=== PATIENT | male | born 1985 | race American Indian/Alaskan Native ===

== ENCOUNTER 2017-04-07 13:17 | Emergency (ER) | payer SELFPAY ==
[2017-04-07 13:31] VITALS: O2SAT 96
[2017-04-07] MEDS ORDERED: Iohexol 240 (50 ml) PO STA (13:57)
[2017-04-07] MEDS ORDERED: Iohexol 240 (50 ml) ONE (14:09)
[2017-04-07 14:11] LABS: BASO % 0.9 % (0.0-2.0); EOS # 0.1 K/uL (0.0-0.7); EOS % 2.8 % (0.0-4.0); HEMATOCRIT 42.3 % (35.0-51.0); LYMPH # 1.9 K/uL (1.0-4.3); LYMPH % 40.1 % (20.0-40.0); MEAN CELL VOLUME 85.8 fL (80.0-94.0); MEAN CORPUSCULAR HEMOGLOBIN 27.9 pg (27.0-31.0); MEAN CORPUSCULAR HGB CONC 32.5 g/dL (33.0-37.0); MEAN PLATELET VOLUME 7.3 fL (7.2-11.7); MONO # 0.4 K/uL (0.0-0.8); MONO % 9.6 % (0.0-10.0); NRBC % 0.1 % (0.0-2.0); RED CELL DISTRIBUTION WIDTH 13.1 % (11.5-14.5); WHITE BLOOD COUNT 4.7 K/uL (4.8-10.8)
[2017-04-07 14:25] LABS: ALB/GLOB RATIO 0.9 (1.0-2.1); ALKALINE PHOSPHATASE 98 U/L (38-126); ALT/SGPT 71 U/L (21-72); AST/SGOT 124 U/L (17-59); BILIRUBIN,TOTAL 0.6 mg/dL (0.2-1.3); BLOOD UREA NITROGEN 9 mg/dL (9-20); CALCIUM 8.3 mg/dl (8.6-10.4); CARBON DIOXIDE 32 mmol/L (22-30); CHLORIDE 104 mmol/L (98-107); GFR AFRICAN-AMERICAN > 60; GLUCOSE,RANDOM 96 mg/dL (75-110); POTASSIUM 3.7 mmol/L (3.6-5.2); SODIUM 140 mmol/L (132-148); TOTAL PROTEIN 7.7 g/dL (6.3-8.3)
--- NOTE | 2017-04-07 14:45 | C.PDOC ---
History Of Present Illness Dusty Valdez is a 31 year old male, with no past medical history, who presents to the emergency department complaining of a sharp cramp abdominal pain associated with vomit and diarrhea onset for x5 days. Patient reports improvement of vomiting today and stats he had a bloody mucus bowel movement. The pain is localized in periumbilical and LLQ . Positive tactile fever. He denies any recent travels. No further medical complaints. PMD: Iggy Belcher Time Seen by Provider: 04/07/17 13:43 Chief Complaint (Nursing): Abdominal Pain History Per: Patient History/Exam Limitations: no limitations Onset/Duration Of Symptoms: Days (x5) Current Symptoms Are (Timing): Still Present Pain Scale Rating Of: 6 Location Of Pain/Discomfort: LLQ, Periumbilical Radiation Of Pain To:: None Quality Of Discomfort: Sharp, Cramping Associated Symptoms: Fever, Vomiting, Diarrhea Recent travel outside of the [place]: No Past Medical History Reviewed: Historical Data, Nursing Documentation, Vital Signs Vital Signs: Last Vital Signs Temp 98.2 F 04/07/17 13:20 Pulse 81 04/07/17 13:20 Resp 18 04/07/17 13:20 BP 103/70 04/07/17 13:20 Pulse Ox 96 04/07/17 16:27 - Medical History PMH: Anxiety, Depression Surgical History: No Surg Hx Family History: States: Unknown Family Hx - Social History Hx Tobacco Use: No Hx Alcohol Use: No Hx Substance Use: Yes (marijuana) - Immunization History Hx Tetanus Toxoid Vaccination: No Hx Influenza Vaccination: No Hx Pneumococcal Vaccination: No Review Of Systems Except As Marked, All Systems Reviewed And Found Negative. Constitutional: Positive for: Fever Gastrointestinal: Positive for: Vomiting, Abdominal Pain, Diarrhea Physical Exam - Physical Exam Skin: Normal Color, Warm, Dry Head: Atraumatic, Normacephalic Eye(s): bilateral: Normal Inspection, PERRL, EOMI Ear(s): Bilateral: Normal Throat: Normal Neck: Normal ROM, Supple Cardiovascular: Rhythm Regular Respiratory: Normal Breath Sounds, No Accessory Muscle Use Gastrointestinal/Abdominal: Tenderness (LLQ) Extremity: Normal ROM, No Deformity, No Swelling Neurological/Psych: Oriented x3, Normal Speech ED Course And Treatment - Laboratory Results Result Diagrams: 04/07/17 14:07 12/12/17 14:07 O2 Sat by Pulse Oximetry: 96 (RA) Pulse Ox Interpretation: Normal Medical Decision Making Medical Decision Making: Initial Impression: Abdominal Pain Initial Plan: --Abd pelvis PO & IV contrast --Comp Metabolic Panel --Lipase --CBC w/ differential --Morphine 2 mg IVP --Omnipaque 240 50 ml PO --Pepcid 20 mg IVP --Zofran Inj 4 mg IVP --C Diff toxin A B --Urinalysis 15:55 Abd/Pelvis CT FINDINGS: LOWER THORAX: No visible consolidation, pleural effusion, or pneumothorax. LIVER: Unremarkable. GALLBLADDER AND BILE DUCTS: Unremarkable. PANCREAS: Unremarkable. SPLEEN: Unremarkable. ADRENALS: Unremarkable. KIDNEYS AND URETERS: The kidneys enhance symmetrically. No hydronephrosis or obstructing renal calculus. BLADDER: The urinary bladder appears unremarkable. REPRODUCTIVE: Unremarkable. APPENDIX: The appendix appears within normal limits of caliber. No secondary signs of acute appendicitis. BOWEL: The stomach is nondistended. The bowel loops appear within normal limits of caliber without evidence of intestinal obstruction. PERITONEUM: No significant free fluid. No definite free air. LYMPH NODES: No bulky lymphadenopathy identified. VASCULATURE: No aortic aneurysm. BONES: No acute osseous abnormality is detected. OTHER FINDINGS: None. IMPRESSION: No acute findings identified. 16:27 -Patient feels better, no further pain. Discussed CT scan and blood results with patient, advised for follow-up with PMD in x2 days. Given mucus will start patient in Cipro and Flagyl for home. Disposition - Disposition Referrals: Iggy Belcher MD [Staff Provider] - Disposition: HOME/ ROUTINE Disposition Time: 16:23 Condition: IMPROVED Additional Instructions: follow up with your doctor in 2 days call to make an appointment take medications as prescribed return to hospital if symptoms worsens or progress Prescriptions: Acetaminophen/Codeine [Tylenol/Codeine 300 MG/30 MG] 1 tab PO Q6H PRN #8 tab PRN Reason: Pain, Severe (8-10) Ciprofloxacin HCl [Cipro] 500 mg PO BID #20 tab Metronidazole [Flagyl] 500 mg PO BID #20 tablet Ondansetron ODT [Zofran ODT] 4 mg PO TID PRN #12 odt PRN Reason: Nausea/Vomiting Forms: General Discharge Instructions, [facility] (Belgian) - Clinical Impression Clinical Impression: Abdominal pain - Scribe Statement Spike Camacho Provider Attestation: All medical record entries made by the Scribe were at my direction and personally dictated by me. I have reviewed the chart and agree that the record accurately reflects my personal performance of the history, physical exam, medical decision making, and the department course for this patient. I have also personally directed, reviewed, and agree with the discharge instructions and disposition.
[2017-04-07 15:00] LABS: RBC URINE 4 /hpf (0-3); URINE BACTERIA OCC (<OCC); URINE BILIRUBIN NEGATIVE (NEGATIVE); URINE BLOOD NEGATIVE (NEGATIVE); URINE COLOR Yellow (YELLOW); URINE GLUCOSE (UA) NORMAL (Normal); URINE KETONE NEGATIVE (NEGATIVE); URINE LEUKOCYTE ESTERASE NEG Leu/uL (Negative); URINE PROTEIN NEGATIVE (NEGATIVE); URINE UROBILINOGEN NORMAL mg/dL (0.2-1.0); WBC URINE 4 /hpf (0-5)
[2017-04-07] MEDS ORDERED: Iodixanol 320 MG/ML 100 ML BOTTLE IV ONE (15:33)
--- NOTE | 2017-04-07 16:09 | CT ---
PROCEDURE: CT Abdomen and Pelvis with oral and IV contrast. HISTORY: abd pain COMPARISON: None available. TECHNIQUE: Contiguous axial images of the abdomen and pelvis. Oral and IV contrast was administered. Coronal and Sagittal reformats generated and reviewed. Contrast dose: 100 Visipaque 320 Radiation dose: Total exam DLP = 1275.28 MGy-cm. This CT exam was performed using one or more of the following dose reduction techniques: Automated exposure control, adjustment of the mA and/or kV according to patient size, and/or use of iterative reconstruction technique. FINDINGS: LOWER THORAX: No visible consolidation, pleural effusion, or pneumothorax. LIVER: Unremarkable. GALLBLADDER AND BILE DUCTS: Unremarkable. PANCREAS: Unremarkable. SPLEEN: Unremarkable. ADRENALS: Unremarkable. KIDNEYS AND URETERS: The kidneys enhance symmetrically. No hydronephrosis or obstructing renal calculus. BLADDER: The urinary bladder appears unremarkable. REPRODUCTIVE: Unremarkable. APPENDIX: The appendix appears within normal limits of caliber. No secondary signs of acute appendicitis. BOWEL: The stomach is nondistended. The bowel loops appear within normal limits of caliber without evidence of intestinal obstruction. PERITONEUM: No significant free fluid. No definite free air. LYMPH NODES: No bulky lymphadenopathy identified. VASCULATURE: No aortic aneurysm. BONES: No acute osseous abnormality is detected. OTHER FINDINGS: None. IMPRESSION: No acute findings identified.
[2017-04-07 18:03] VITALS: BP 121/70; PULSE 78; RESP 20; TEMP 98.8
== END 2017-04-07 18:03 | disposition home or self-care (01) ==
LOC: C.ER 13:17
DX: R10.9 Unspecified abdominal pain (principal)
CPT/HCPCS: 74177; 80053; 81001; 83690; 85025; 96374; 96375; 99284; J2270; J2405; Q9966; Q9967